=== PATIENT | female | born 1935 | race Hispanic/Latino ===

== ENCOUNTER 2020-05-17 13:29 | Emergency (ER) | payer MEDICARE ==
[~2020-05-17] VITALS: Ht 142.2 cm; Wt 55.8 kg
[2020-05-17] MEDS ORDERED: TETANUS/DIPHTHERIA TOX ADULT 0.5 ML SYR IM ONE (14:45)
[2020-05-17] MEDS ORDERED: TETANUS/DIPHTHERIA TOX ADULT 0.5 ML SYR ONE (15:08)
--- NOTE | 2020-05-17 15:44 | Diagnostic Imaging Report ---
EXAMINATION: Head and face CT without contrast. HISTORY: 84-year-old female status post fall, trauma, head and face pain, facial hematoma. COMPARISON: None. TECHNIQUE: Multidetector axial images were obtained without contrast from the foramen magnum to the vertex and over the face. Dose modulation, iterative reconstruction, and/or weight based adjustment of the mA/kV was utilized to reduce the radiation dose to as low as reasonably achievable. Head CT findings: Skull: Right forehead scalp swelling/laceration without underlying fractures. Parenchyma: Scattered and mildly confluent and periventricular white matter hypodensities, most likely nonspecific chronic microvascular ischemic changes. No mass, hemorrhage or CT evidence of acute vascular insult. Brain volume: Normal for age. Ventricles: No hydrocephalus or displacement. Arteries: No density suggestive of thrombus. Dural sinuses: No abnormal density. Extra-axial spaces: No abnormal density. Foramen magnum: No mass, Chiari malformation, or basilar invagination. Sella: No obvious mass. Paranasal/mastoid sinuses: Imaged portions unremarkable. Face CT findings: Bones: Prominent degenerative changes of the right TMJ with resorption of the mandibular condyle.. Facial soft tissues: Right forehead soft tissue swelling and laceration. No underlying fracture.. Orbits contents: The lenses are not visualized, likely from prior cataract surgery, otherwise no abnormalities. Paranasal sinuses and drainage pathways: Mild mucosal inflammatory thickening and partial opacification of the right sphenoid sinus, otherwise clear. Nasal septum and nasal cavities: Midline. Anatomic variations: No significant anatomic variations. Teeth: No acute abnormality of the visualized teeth. IMPRESSION: Head CT: 1. No acute post traumatic intracranial abnormalities, particularly no hemorrhage. 2. Mild white matter chronic microvascular ischemic changes. Face CT: Right forehead soft tissue swelling and laceration without underlying fractures. Signed by: Dr. Gena Lilly M.D. on 05/17/2020 3:40 PM
--- NOTE | 2020-05-17 15:48 | Diagnostic Imaging Report ---
EXAMINATION: CT of the cervical spine HISTORY: Status post fall, head trauma, pain COMPARISON: None available TECHNIQUE: Multidetector helical axial images were obtained without contrast from the foramen magnum to T1. Dose modulation, iterative reconstruction, and/or weight based adjustment of the mA/kV was utilized to reduce the radiation dose to as low as reasonably achievable. FINDINGS: Alignment: Normal alignment and lordosis Soft tissues: Normal Vertebrae: Minimal chronic compression deformity of the C6 and C7 vertebral bodies. Otherwise normal height. Mild diffuse demineralization. No acute displaced fractures. Degenerative changes: C1-C2: Normal C2-C3: Mild disc wall without canal or foraminal stenoses. C3-C4: Minimal disc bulge without stenosis. C4-C5: Mild disc bulge and prominent facet arthrosis on the left. Mild left foraminal stenosis. C5-C6: Mild disc bulge and facet arthrosis in the right. No significant stenosis. C6-C7: Minimal disc bulge and facet arthrosis. No stenoses C7-T1: Normal IMPRESSION: 1. No acute displaced fractures or dislocations of the cervical spine. 2. Minimal chronic degenerative changes as above. Note: Acute postraumatic spinal cord, vascular or ligamentous injuries cannot adequately be assessed by CT. Signed by: Dr. Gena Lilly M.D. on 05/17/2020 3:44 PM
--- NOTE | 2020-05-17 16:33 | Emergency Department Note ---
History of Present Illnes History of Present Illness Chief Complaint: facial pain, scalp laceration s/p trip and fall History of Present Illness This is a 84 year old female . Historian: Family Member Arrival Mode: Car History limited by: condition of the patient (normal) [employer] Required: No Onset (how long ago): day(s) (1) Location: see above Quality: dull Radiation: Reports non-radiation Severity: moderate Onset quality: sudden Duration (how long): day(s) (1) Timing of current episode: constant Progression: unchanged Chronicity: new Context: Reports trauma/injury Relieving factors: none Exacerbating factors: none Associated symptoms: Reports denies other symptoms Treatments prior to arrival: none Past Medical/Family History Physician Review I have reviewed the patient's past medical and family history. Any updates have been documented here. Past Medical History Recent Fever: No Clinical Suspicion of Infectio: No New/Unexplained Change in Ment: No Past Medical History: Hypertension, Hypothyroidism, Kidney Stones, Depression Other Medical History: dementia/alzheimers Past Surgical History: Hysterectomy Other Surgery: lithotripsy Social History Smoking Cessation: Never Smoker Counseling Performed: No Alcohol Use: None Any Illegal Drug Use: No Physically hurt or threatened: No Other Any Pre-Existing Lines (PICC,: No Review of Systems Review of Systems Constitutional: Reports no symptoms EENTM: Reports no symptoms Cardiovascular: Reports no symptoms Respiratory: Reports no symptoms Gastrointestinal: Reports no symptoms Genitourinary: Reports no symptoms Musculoskeletal: Reports no symptoms Integumentary: Reports as per HPI Neurological: Reports as per HPI Psychological: Reports no symptoms Endocrine: Reports no symptoms Hematological/Lymphatic: Reports no symptoms Review of other systems: All other systems negative Physical Exam Related Data Allergies: Coded Allergies: Penicillins (Verified Allergy, Unknown, 05/17/20) Triage Vital Signs Vital Signs Date Time Temp Pulse Resp B/P (MAP) Pulse Ox O2 Delivery O2 Flow Rate FiO2 05/17/20 13:50 99.6 90 20 102/76 95 Room Air Vital signs reviewed: Yes Physical Exam CONSTITUTIONAL Constitutional: Present well-developed, Present well-nourished HENT HENT: Present normocephalic, Present oropharynx clear/moist, Present nose normal, Present other (healing frontal scalp laceration(4cm) HENT L/R: Present left ext ear normal, Present right ext ear normal EYES Eyes: Reports PERRL, Reports conjunctivae normal NECK Neck: Present ROM normal, Present supple, Present other (c spine tenderness) PULMONARY Pulmonary: Present effort normal, Present breath sounds normal CARDIOVASCULAR Cardiovascular: Present regular rhythm, Present heart sounds normal, Present capillary refill normal, Present normal rate GASTROINTESTINAL Abdominal: Present soft, Present nontender, Present bowel sounds normal GENITOURINARY Genitourinary: Present exam deferred SKIN Skin: Present warm, Present dry MUSCULOSKELETAL Musculoskeletal: Present ROM normal NEUROLOGICAL Neurological: Present alert, Present oriented x 3, Present no gross motor or sensory deficits PSYCHOLOGICAL Psychological: Present mood/affect normal, Present judgement normal Results Imaging Imaging results reviewed: Yes Impressions [place] [id number] Patient Name: WILLIAM PERRY MR #: [id number] : 1935 Age/Sex: 84/F Req #: [id number] Adm Physician: Ordered by: ZULEIMA SMITH Report #: [id number] Location: [facility] Room/Bed: Procedure: [id number] HOPD/CT BRAIN -[facility] Exam Date: 05/17/20 Exam Time: 1501 REPORT STATUS: Signed EXAMINATION: Head and face CT without contrast. HISTORY: 84-year-old female status post fall, trauma, head and face pain, facial hematoma. COMPARISON: None. TECHNIQUE: Multidetector axial images were obtained without contrast from the foramen magnum to the vertex and over the face. Dose modulation, iterative reconstruction, and/or weight based adjustment of the mA/kV was utilized to reduce the radiation dose to as low as reasonably achievable. Head CT findings: Skull: Right forehead scalp swelling/laceration without underlying fractures. Parenchyma: Scattered and mildly confluent and periventricular white matter hypodensities, most likely nonspecific chronic microvascular ischemic changes. No mass, hemorrhage or CT evidence of acute vascular insult. Brain volume: Normal for age. Ventricles: No hydrocephalus or displacement. Arteries: No density suggestive of thrombus. Dural sinuses: No abnormal density. Extra-axial spaces: No abnormal density. Foramen magnum: No mass, Chiari malformation, or basilar invagination. Sella: No obvious mass. Paranasal/mastoid sinuses: Imaged portions unremarkable. Face CT findings: Bones: Prominent degenerative changes of the right TMJ with resorption of the mandibular condyle.. Facial soft tissues: Right forehead soft tissue swelling and laceration. No underlying fracture.. Orbits contents: The lenses are not visualized, likely from prior cataract surgery, otherwise no abnormalities. Paranasal sinuses and drainage pathways: Mild mucosal inflammatory thickening and partial opacification of the right sphenoid sinus, otherwise clear. Nasal septum and nasal cavities: Midline. Anatomic variations: No significant anatomic variations. Teeth: No acute abnormality of the visualized teeth. IMPRESSION: Head CT: 1. No acute post traumatic intracranial abnormalities, particularly no hemorrhage. 2. Mild white matter chronic microvascular ischemic changes. Face CT: Right forehead soft tissue swelling and laceration without underlying fractures. Signed by: Dr. Todd Almaguer M.D. on 05/17/2020 3:40 PM Dictated By: TODD ALMAGUER MD 39 Transcribed By: ELO on 05/17/201539 COPY TO: ZULEIMA SMITH~ [place] [id number] Patient Name: WILLIAM PERRY MR #: [id number] : 1935 Age/Sex: 84/F Req #: [id number] Adm Physician: Ordered by: ZULEIMA SMITH Report #: [id number] Location: [facility] Room/Bed: Procedure: [id number] HOPD/CT C-SPINE W/O - [facility] Exam Date: 05/17/20 Exam Time: 1501 REPORT STATUS: Signed EXAMINATION: CT of the cervical spine HISTORY: Status post fall, head trauma, pain COMPARISON: None available TECHNIQUE: Multidetector helical axial images were obtained without contrast from the foramen magnum to T1. Dose modulation, iterative reconstruction, and/or weight based adjustment of the mA/kV was utilized to reduce the radiation dose to as low as reasonably achievable. FINDINGS: Alignment: Normal alignment and lordosis Soft tissues: Normal Vertebrae: Minimal chronic compression deformity of the C6 and C7 vertebral bodies. Otherwise normal height. Mild diffuse demineralization. No acute displaced fractures. Degenerative changes: C1-C2: Normal C2-C3: Mild disc wall without canal or foraminal stenoses. C3-C4: Minimal disc bulge without stenosis. C4-C5: Mild disc bulge and prominent facet arthrosis on the left. Mild left foraminal stenosis. C5-C6: Mild disc bulge and facet arthrosis in the right. No significant stenosis. C6-C7: Minimal disc bulge and facet arthrosis. No stenoses C7-T1: Normal IMPRESSION: 1. No acute displaced fractures or dislocations of the cervical spine. 2. Minimal chronic degenerative changes as above. Note: Acute postraumatic spinal cord, vascular or ligamentous injuries cannot adequately be assessed by CT. Signed by: Dr. Todd Almaguer M.D. on 05/17/2020 3:44 PM Dictated By: TODD ALMAGUER MD 43 Transcribed By: ELO on 05/17/201543 COPY TO: ZULEIMA SMITH~ Assessment & Plan Medical Decision Making MDM see below Assessment & Plan Final Impression: (1) Contusion (2) Healing laceration Depart Disposition: HOME, SELF-CARE Last Vital Signs Date Time Temp Pulse Resp B/P (MAP) Pulse Ox O2 Delivery O2 Flow Rate FiO2 05/17/20 13:50 99.6 90 20 102/76 95 Room Air Medications in the ED Tetanus/ Diphtheria Toxoids 0.5 ml ONCE ONCE IM Last administered on 10/3 0/20at 15:30; Admin Dose 0.5 ML; Start 05/17/20 at 14:45; Stop 05/17/20 at 14:46; Status DC Tetanus/ Diphtheria Toxoids 0.5 ml STK-MED ONCE .ROUTE ; Start 05/17/20 at 15:08; Stop 05/17/20 at 15:01; Status DC ZULEIMA SMITH May 17, 2020 16:33
[2020-05-17 17:03] VITALS: BP 121/88
== END 2020-05-17 17:01 | disposition home or self-care (01) ==
LOC: FSED 13:59
DX: S00.83XA Contusion of other part of head, initial encounter (principal); W01.0XXA Fall on same level from slipping, tripping and stumbling without subsequent striking against object, initial encounter; Y93.01 Activity, walking, marching and hiking; Y92.008 Other place in unspecified non-institutional (private) residence as the place of occurrence of the external cause; I10 Essential (primary) hypertension; E03.9 Hypothyroidism, unspecified; G30.9 Alzheimer's disease, unspecified; F02.80 Dementia in other diseases classified elsewhere, unspecified severity, without behavioral disturbance, psychotic disturbance, mood disturbance, and anxiety; F32.9 Major depressive disorder, single episode, unspecified
CPT/HCPCS: 70450; 70486; 72125; 90471; 90714; 96372; 99283